=== PATIENT | female | born 1960 | race Caucasian/White ===

== ENCOUNTER → 2017-07-17 | Outpatient (CLI) | payer MEDICARE, OTHER ==
--- NOTE | 2017-07-17 21:24 | MR ---
EXAMINATION TYPE: MR lumbar spine wo con DATE OF EXAM: 07/17/2017 COMPARISON: Prior exam 05/24/2015 HISTORY: Low back pain x10 years, previous MRI on PACS TECHNIQUE: Multiplanar, multisequence images of the lumbar spine were acquired. L1-L2: Posterior broad-based disc bulge causes mild anterior mass effect on the thecal sac. There is facet arthropathy change, no significant foraminal encroachment. L2-L3: Facet arthropathy encroaches on the lateral recesses. There is a right posterior paracentral e xtension of disc bulge causing minimal anterolateral mass effect on the thecal sac. No central canal stenosis or foraminal encroachment. L3-L4: No significant spinal stenosis. There is some hypertrophic change present encroaching on the l ateral recesses. No definite foraminal encroachment. No sizable disc herniation. Minimal anterolisthe sis grade 1 L3-4 L4-L5: Postop changes are noted. There is no significant central stenosis. No evident foraminal encro achment or disc herniation. There is loss of disc height and signal. L5-S1: Laminectomy is noted. The cystic change and T2-weighted sequences at the posterior aspect of t he disc at L5-S1 in the left paracentral location shows a similar configuration, there may be some ma ss effect on the left S1 nerve root, circumferential extension of endplate disc complex encroaches on the neural foramen on the left, there is no central canal stenosis. There is loss of disc height and signal. Posterior fixation hardware is again noted and causes some artifact as on prior exam. Laminectomies a re present. IMPRESSION: Postop changes as described. Some cystic change at L5-S1 left paracentral location may cause some mas s effect on the left S1 nerve root as described.
== END | disposition home or self-care (01) ==
LOC: RADMRIMAIN 20:09
DX: M47.26 Other spondylosis with radiculopathy, lumbar region (principal); Z98.890 Other specified postprocedural states
CPT/HCPCS: 72148

== ENCOUNTER → 2020-01-01 | Outpatient (CLI) | payer MEDICARE ==
[2020-01-01 11:07] LABS: African American GFR (CKD) >90 (>60 ml/min/1.73 sqM); Blood Urea Nitrogen 23 mg/dL (7-17); Non-African American GFR(CKD) >90 (>60 ml/min/1.73 sqM)
--- NOTE | 2020-01-01 12:50 | CT ---
EXAMINATION TYPE: CT soft tissue neck w con DATE OF EXAM: 01/01/2020 COMPARISON: None HISTORY: 59-year-old female throat swelling TECHNIQUE: Contiguous axial scanning of the soft tissues of the neck performed with IV Contrast, azar ent injected with 100 mL of Isovue 300. Coronal/sagittal reconstructions performed. CT DLP: 675 mGycm Automated exposure control for dose reduction was used. FINDINGS: Hypoplastic V4 segment left vertebral artery. Persistent origin left posterior cerebral artery. Visualized intracranial structures, orbits and globes, paranasal sinuses, mastoid air cells appear cl ear. Nasopharynx appears clear. Subtle asymmetric soft tissue thickening along the base of the left tonsillar pillar, axial image 30 may be secondary to soft tissue redundancy. Direct visualization can exclude a mucosal lesion Epiglottis and prevertebral soft tissues are satisfactory. Gliotic and subglottic structures as well as the tracheal column appear clear. Moderate emphysema in the visualized upper lungs. Thyroid gland is heterogeneous. Submandibular and parotid glands are satisfactory. Scattered nonenlarged lymph nodes within both sides of the neck. Status post interbody scoliosis C5-C6 ACDF at C6-C7. There is a intervertebral disc prosthesis at C4- C5 with prominent grade 1 anterolisthesis. IMPRESSION: 1. ASYMMETRIC SOFT TISSUE THICKENING ALONG THE BASE OF THE LEFT TONSILLAR PILLAR, AXIAL IMAGE 30, MAY BE SECONDARY TO SOFT TISSUE REDUNDANCY. DIRECT VISUALIZATION CAN EXCLUDE A MUCOSAL LESION. 2. HETEROGENEOUS THYROID GLAND. CONSIDER GOITER OR DIFFUSE THYROIDITIS. 3. NO CERVICAL LYMPHADENOPATHY IDENTIFIED. 4. SURGICAL CHANGES IN THE CERVICAL SPINE. THERE IS AN INTERVERTEBRAL DISC PROSTHESIS AT C4-C5 WITH A PROMINENT GRADE 1 ANTEROLISTHESIS HERE.
== END | disposition home or self-care (01) ==
LOC: RADCTMAIN 09:57
PROVIDERS: ATTEND Otolaryngology
DX: R93.89 Abnormal findings on diagnostic imaging of other specified body structures (principal); R49.0 Dysphonia
CPT/HCPCS: 82565; 84520; 70491; 36415; Q9967

== ENCOUNTER → 2020-01-02 | Day surgery (SDC) | payer MEDICARE ==
[2020-01-01 13:18] VITALS: BMI 32.8
[~2020-01-02] MED LIST: ACETAMINOPHEN IV (For NPO) 1,000 MG in EMPTY BAG 1 BAG IVPB ONE; DEXAMETHASONE SOD PHOS (MDV) 100 MG/10 ML VIAL ONE; DEXAMETHASONE SOD PHOSPHATE 4 MG/ML 1 ML VIAL IV ONE; GLYCOPYRROLATE 0.2 MG/ML 2 ML VIAL ONE; HYDROmorphone 0.5 MG/0.5 ML SYRINGE IVP PRN; LACTATED RINGERS 1,000 ML IV SCH; LIDOCAINE 1% (10MG/ML) FOR IV START INTRADERMA ONE; LIDOCAINE 1% INJ 10MG/ML (20 ML MDV) ONE; MIDAZOLAM 2 MG/2 ML VIAL ONE; NEOSTIGMINE 1 MG/ML 10 ML VIAL ONE; ONDANSETRON 4 MG/2 ML VIAL IVP ONE; PROPOFOL 10 MG/ML 20 ML VIAL IV ONE; Pre Op ABX Message 1 EACH MISC MISCELLANE ONE; ROCURONIUM 10 MG/ML (10 ML VIAL) IV ONE; SUCCINYLCHOLINE CHLORIDE 100 MG/5 ML SYR IV ONE; fentaNYL (PF) 50 MCG/ML 2 ML AMP ONE
--- NOTE | 2020-01-02 01:58 | HP ---
HISTORY AND PHYSICAL CHIEF COMPLAINT: Chronic laryngitis/hoarseness. HISTORY OF PRESENT ILLNESS: The patient is a pleasant, 59-year-old female who presented to my office complaining of having a one-month history of progressive hoarseness. She denies any pain in her throat, any referred otalgia or any dysphagia. She smokes approximately 1/2 to 1 pack of cigarettes per day and was advised to quit for obvious health reasons. In addition to this, she stated that she also has been diagnosed with COPD/emphysema. At the time that she was seen in my office, clinical examination of oropharynx including an indirect laryngoscopy revealed evidence of a suspicious lesion located at the base of the left tonsillar pillar and on the left true vocal cord. This area was highly suspicious for possible malignancy and because of the patient's history of heavy smoking, it was recommended that she undergo a suspension microlaryngoscopy with biopsy of the left true vocal cord and any other areas that might be deemed necessary under general anesthesia. PAST MEDICAL HISTORY: Past medical history reveals that she has allergies to MORPHINE. Her current medications include metformin, Glucotrol, simvastatin, one baby aspirin daily, Januvia, Neurontin. REVIEW OF SYSTEMS: Cardiovascular is negative. Respiratory is positive for COPD/emphysema. Metabolic endocrine is positive for type 2 diabetes mellitus and hypercholesterolemia. The remainder of review of systems is unremarkable. PAST SURGICAL HISTORY: Previous surgeries include multiple back surgeries and neck surgeries involving disc surgery and cervical fusions. In addition, she has had left hand surgery, right knee surgery involving the cartilage of the knee. She also has history of sleep apnea and uses a BiPAP machine. In addition to this, she is 3 para, 3 C-sections, , 0 miscarriages. PHYSICAL EXAMINATION: HEENT: Patient is normocephalic. Tympanic membranes are normal. Middle ear space is free of any fluid or infection. Pupils are equal, round, and reactive to light and accommodation. Extraocular movements are within normal limits. Intranasal examination reveals moderate to severe septal deviation with compensatory hypertrophy of the inferior turbinates and a moderate amount of mucus on the mucous membranes and draining down the posterior pharynx. Examination of oropharynx is unremarkable. Further findings are described above in the history of present illness and will not be repeated here. Palpation of the neck, cranial nerves 2 through 12 and the remainder of the head and neck exam is unremarkable. CHEST/CARDIOVASCULAR: Both lung kunz are clear to percussion and auscultation. Patient is in regular sinus rhythm. S1 and S2 are present without evidence of any murmurs, S3s or S4s. Peripheral pulses are bilaterally symmetrical and within normal limits. ABDOMEN: There is no evidence any masses, megaly or tenderness. The abdomen is soft. Skin is unremarkable. Musculoskeletal neurological is unremarkable. PELVIC RECTAL EXAM: The pelvic rectal exam is deferred at this time because the patient has this done on a regular basis at her family physician's office. The remainder of physical exam is essentially unremarkable. IMPRESSION: Chronic laryngitis with lesion of the left true vocal cord, base of the left tonsillar fossa. PLAN: The patient is scheduled to undergo a suspension microlaryngoscopy, biopsy of the left true vocal cord under general anesthesia in a.m. ATTENTION RNS IN THE PRE-SURGICAL AREA: I have not ordered any pre-surgical prophylactic antibiotics for this patient. If the pharmacy department sends any pre- surgical prophylactic antibiotics to the pre-surgical area for this patient, please cancel that order and return the medication to the pharmacy department. Please make sure that the patient's account is credited appropriately. I have ordered for this patient to receive 1000 mg of Ofirmev intravenously, to be given once an intravenous line has been established. I have discussed the risks, benefits and alternative therapies for the above-mentioned procedure and for both sedation/analgesia as well as necessary blood product administration, if indicated, as they pertain to this patient. The patient has indicated his or her understanding and acceptance of the risks and procedures discussed. MMODL / IJN: [id number] /
[2020-01-02 12:51] LABS: Glucose,Whole Blood 123 mg/dL (75-99)
[2020-01-02 14:11] LABS: Glucose,Whole Blood 141 mg/dL (75-99)
[2020-01-02 14:18] VITALS: TEMP 97.1
[2020-01-02 15:08] VITALS: RESP 17
[2020-01-02 15:22] VITALS: BP 130/65; PULSE 45
--- NOTE | 2020-01-05 17:16 | OP ---
OPERATIVE REPORT DATE OF SURGERY: 01/02/2020 PREOPERATIVE DIAGNOSIS: Chronic laryngitis, possible laryngeal malignancy. POSTOPERATIVE DIAGNOSIS: Bilateral laryngeal masses, final pathology pending. ANESTHESIA: General. OPERATIVE PROCEDURE: Suspension microlaryngoscopy with biopsy of right and left true vocal cord masses/lesions. OPERATING SURGEON: Dr. Patterson. COMPLICATIONS: None. ESTIMATED BLOOD LOSS: Less than 1 mL. OPERATIVE PROCEDURE: The patient is placed on the operating table in supine position and after uneventful induction and endotracheal intubation, satisfactory general anesthesia was obtained. Next, the patient was draped in usual and customary fashion following which the direct laryngoscope was introduced in the oropharynx and the entire hypopharynx and oropharynx were inspected for any suspicious lesions. Attention was directed to the left tonsil area and especially the base of the left tonsil/tonsillar pillars and no suspicious lesions were noted, but there was significant amount of redundant folds of tissue. The base of tongue, vallecula, right and left piriform sinuses were inspected and found to be free of any suspicious lesions. Next, the tip of the laryngoscope was presented to the laryngeal introitus and advanced thus exposing both true vocal cords. Next the Lewy apparatus was attached to the handle of the laryngoscope and the laryngoscope was suspended on the patient's chest. Following this, using the Zeiss operating microscope and under magnified visualization once seated both true vocal cords were involved with lesions/masses. The mass on the right side was greater in volume than the mass involving the left true vocal cord. Multiple biopsies were taken of the left true vocal cord and of the right true vocal cord. These specimens were kept separate and placed in formalin for permanent sectioning and sent to Pathology. The patient was given 10 mg of Decadron intraoperatively to reduce any postoperative edema. At this point, the procedure was terminated. There were no intraoperative complications. The patient tolerated the procedure well. Final pathology is pending. MMODL / IJN: [id number] /
== END | disposition home or self-care (01) ==
LOC: OR 11:49
PROVIDERS: ATTEND Otolaryngology
DX: J38.3 Other diseases of vocal cords (principal); J37.0 Chronic laryngitis; E11.9 Type 2 diabetes mellitus without complications; F17.210 Nicotine dependence, cigarettes, uncomplicated; J43.9 Emphysema, unspecified; E78.00 Pure hypercholesterolemia, unspecified; G47.30 Sleep apnea, unspecified; E78.5 Hyperlipidemia, unspecified; Z79.84 Long term (current) use of oral hypoglycemic drugs; Z79.899 Other long term (current) drug therapy; Z79.82 Long term (current) use of aspirin; Z98.890 Other specified postprocedural states; Z98.1 Arthrodesis status; Z99.89 Dependence on other enabling machines and devices; Z97.2 Presence of dental prosthetic device (complete) (partial); Z88.5 Allergy status to narcotic agent; Z88.8 Allergy status to other drugs, medicaments and biological substances; Z91.09 Other allergy status, other than to drugs and biological substances
CPT/HCPCS: 31536; 88305; J2250; J1100 ×2; J2710; J2405; J2001; J3010; J0131; J0330; J2704

== ENCOUNTER 2020-01-19 08:35 | Day surgery (SDC) | payer MEDICARE ==
[2020-01-16 10:08] VITALS: BMI 32.5
--- NOTE | 2020-01-18 17:07 | HP ---
HISTORY AND PHYSICAL CHIEF COMPLAINT: Chronic laryngitis with laryngeal polyps. HISTORY OF PRESENT ILLNESS: The patient is a 59-year-old female who was recently taken to surgery at [facility] where she underwent a suspension microlaryngoscopy with biopsy of the right and left true vocal cords. The biopsy came back as benign bilateral polypoid tissue with chronic inflammation, but no malignancy. It was therefore recommend the patient undergo laser removal of the polyps from both true vocal cords to restore her voice. It was explained to the patient that only 1 vocal cord could be done at the time, so as to prevent the formation of a web between the 2 cords. Therefore, the larger lesion which is on the right true vocal cord will be lasered and removed and possibly rebiopsy and the lesion on the left true vocal cord will simply be biopsied. This will be done under general anesthesia in the a.m. PAST MEDICAL HISTORY: ALLERGIES: TO MORPHINE, CODEINE, AND PREFERS TO AVOID ALL NARCOTICS BECAUSE OF REACTIONS. MEDICATIONS: Include metformin, Glucotrol, simvastatin, 1 baby aspirin p.o. daily, Januvia and Neurontin. PREVIOUS SURGERIES: Previous surgeries include suspension microlaryngoscopy with biopsy of the right and left true vocal cords. Multiple lower back surgeries and cervical neck disk surgery/cervical fusions, left hand surgery, right knee surgery, right knee arthroscopic surgery involving the cartilage of the knee, but not total knee replacement. She has history of sleep apnea and uses a BiPAP machine. She is 3 para, 3 C sections, 0 , 0 miscarriages. REVIEW OF SYSTEMS: Cardiovascular is negative. RESPIRATORY: Positive for COPD/emphysema, the patient has history of smoking, which she is trying to quit at the present time. The metabolic/ endocrine system is positive for type 2 diabetes mellitus and hypercholesterolemia. The remainder of the review of systems is essentially unremarkable. PHYSICAL EXAMINATION: This patient is a 59-year-old female who was alert, cooperative and well-oriented to time and place. HEENT examination: Patient is normocephalic. Tympanic membranes are normal. Middle ear spaces are free of any fluid or infection. Pupils equal, round, react to light and accommodation. Extraocular movements within normal limits. Intranasal examination reveals moderate septal deviation with bilateral compensatory hypertrophy of inferior turbinates. A moderate amount of mucus on the mucous membranes and draining down the posterior pharynx. Examination of oropharynx including indirect laryngoscopy reveals bilateral true vocal cord polyps. Palpation of the neck, cranial nerves 2 through 12 and remainder of the head and neck exam are within normal limits. Chest/cardiovascular: Both lung kunz are clear to percussion and auscultation. The patient is in regular sinus rhythm. S1 and S2 are present without evidence of any murmurs, S3s or S4s. Peripheral pulses are bilaterally symmetrical. Abdomen: There is no evidence any masses, megaly or tenderness. The abdomen is soft. Skin is unremarkable. Musculoskeletal, neurological within normal limits. Pelvic/rectal exam: The pelvic rectal exam is deferred at this time because the patient has this done on a regular basis at her family physician's office. The remainder of physical exam is essentially unremarkable. IMPRESSION: Bilateral true vocal cord lesions/polyps. PLAN: Patient's chest is scheduled undergo a CO2 laser of a right true vocal cord polyp and possible biopsy of left true vocal cord lesion/polyp under general anesthesia in a.m. Attention nurses in the preop pre-surgical area: I have not ordered any pre-surgical prophylactic antibiotics for this patient. If the pharmacy department sends any pre- surgical prophylactic antibiotics to the pre-surgical area for this patient, that order should be cancelled, the medication should be returned to the pharmacy department and make sure that the patient's account is credited appropriately. I have ordered for this patient to receive 1000 mg of Ofirmev IV to be given once an intravenous line has been established. I have discussed the risks, benefits and alternative therapies for the above-mentioned procedure and for both sedation/analgesia as well as necessary blood product administration, if indicated, as they pertain to this patient. The patient has indicated his or her understanding and acceptance of the risks and procedures discussed. MMODL / IJN: [id number] /
[~2020-01-19 08:35] MED LIST changes: -ACETAMINOPHEN IV (For NPO) 1,000 MG in EMPTY BAG 1 BAG IVPB ONE; -DEXAMETHASONE SOD PHOS (MDV) 100 MG/10 ML VIAL ONE; -GLYCOPYRROLATE 0.2 MG/ML 2 ML VIAL ONE; -LIDOCAINE 1% (10MG/ML) FOR IV START INTRADERMA ONE; -LIDOCAINE 1% INJ 10MG/ML (20 ML MDV) ONE; -MIDAZOLAM 2 MG/2 ML VIAL ONE; -NEOSTIGMINE 1 MG/ML 10 ML VIAL ONE; -PROPOFOL 10 MG/ML 20 ML VIAL IV ONE; -ROCURONIUM 10 MG/ML (10 ML VIAL) IV ONE; -SUCCINYLCHOLINE CHLORIDE 100 MG/5 ML SYR IV ONE; -fentaNYL (PF) 50 MCG/ML 2 ML AMP ONE
[2020-01-19 08:55] VITALS: TEMP 97.8
[2020-01-19] MEDS ORDERED: LACTATED RINGERS 1,000 ML IV ONE (08:56)
[2020-01-19 09:10] LABS: Glucose,Whole Blood 120 mg/dL (75-99)
[2020-01-19] MEDS: ACETAMINOPHEN IV (For NPO) 1,000 MG in EMPTY BAG 1 BAG IVPB ONE ×2 (09:15→09:52)
[2020-01-19] MEDS ORDERED: SUCCINYLCHOLINE CHLORIDE 100 MG/5 ML SYR IV ONE (09:51)
[2020-01-19] MEDS ORDERED: MIDAZOLAM 2 MG/2 ML VIAL ONE (09:51)
[2020-01-19] MEDS ORDERED: LIDOCAINE 1% INJ 10MG/ML (20 ML MDV) ONE (09:51)
[2020-01-19] MEDS ORDERED: fentaNYL (PF) 50 MCG/ML 2 ML AMP ONE (09:51)
[2020-01-19] MEDS ORDERED: PROPOFOL 10 MG/ML 20 ML VIAL IV ONE (09:51)
[2020-01-19] MEDS ORDERED: DEXAMETHASONE SOD PHOSPHATE 10 MG/ML 1 ML VIAL ONE (09:51)
[2020-01-19 11:13] VITALS: RESP 16
[2020-01-19 11:17] LABS: Glucose,Whole Blood 169 mg/dL (75-99)
[2020-01-19 12:33] VITALS: BP 129/69; PULSE 65
--- NOTE | 2020-01-19 17:13 | OP ---
OPERATIVE REPORT DATE OF SURGERY: 01/18/2023 PREOPERATIVE DIAGNOSIS: Bilateral true vocal cord polypoid lesions. POSTOPERATIVE DIAGNOSIS: Bilateral true vocal cord polypoid lesions. ANESTHESIA: General. PROCEDURE: Was a suspension microlaryngoscopy with CO2 laser and biopsy of the left true vocal cord. OPERATING SURGEON: Dr. Chava Patterson. COMPLICATIONS: None. ESTIMATED BLOOD LOSS: Less than 0.5 mL. OPERATIVE PROCEDURE: The patient is placed operating table in supine position. After uneventful induction of endotracheal intubation, satisfactory general anesthesia was obtained. The patient was draped in usual customary fashion. The direct laryngoscope was introduced into the patient's oropharynx and the entire hypopharynx including the right and left piriform sinuses, base of tongue, valleculae and epiglottis were inspected and found to be free of any suspicious lesions. Next, the tip of the laryngoscope was placed into the laryngeal introitus. Subsequently, the Lewy apparatus was attached to the handle of the laryngoscope and the laryngoscope was suspended on the patient's chest. Using the Zeiss operating microscope under direct magnified visualization. One could see that there was bilateral polypoid-like lesions on the true vocal cords and also including the laryngeal ventricles. Initially, a biopsy was taken of the left polypoid lesion and this was sent to Pathology for permanent sectioning. . Using the CO2 laser set on a 10 watt intermittent setting, the polypoid lesion on the left true vocal cord/left ventricle was completely vaporized in the usual fashion. Care was taken not to injure any of the vocalis muscle of the vocal cord. The patient was given 10 mg of Decadron intraoperatively to reduce any postoperative laryngeal edema. At this point, the procedure was terminated. There was no intraoperative complications. The patient tolerated the procedure well and was returned to recovery room in satisfactory condition. Final pathology of the left true vocal cord biopsy is pending. MMODL / IJN: [id number] /
== END 2020-01-19 12:40 | disposition home or self-care (01) ==
LOC: OR 08:35
PROVIDERS: ATTEND Otolaryngology
DX: J38.3 Other diseases of vocal cords (principal); J37.0 Chronic laryngitis; E78.5 Hyperlipidemia, unspecified; G47.33 Obstructive sleep apnea (adult) (pediatric); J44.9 Chronic obstructive pulmonary disease, unspecified; E11.9 Type 2 diabetes mellitus without complications; Z88.5 Allergy status to narcotic agent; Z91.048 Other nonmedicinal substance allergy status; Z79.84 Long term (current) use of oral hypoglycemic drugs; Z79.82 Long term (current) use of aspirin; Z79.899 Other long term (current) drug therapy; Z98.890 Other specified postprocedural states
CPT/HCPCS: 88305; 31536; J2250; J1100 ×2; J2405; J2001; J3010; J0131; J0330; J2704

== ENCOUNTER 2020-05-10 11:26 | Day surgery (SDC) | payer MEDICARE, OTHER ==
[2020-05-06 14:35] VITALS: BMI 34.3
--- NOTE | 2020-05-09 18:15 | HP ---
HISTORY AND PHYSICAL CHIEF COMPLAINT: Chronic laryngitis with right true vocal cord lesion/polyp. HISTORY OF PRESENT ILLNESS: This patient is a 59-year-old female who has previously undergone a suspension microlaryngoscopy with biopsy of the right and left true vocal cords showed right and right and left true vocal cord lesions. Both biopsies were negative. The patient was subsequently taken back to surgery and the lesion on the left true vocal cord was subsequently lasered using the CO2 laser. The patient's voice improved but she still has some residual laryngitis secondary to the remaining polypoid lesion on the right true vocal cord. It was therefore recommended that she undergo a suspension microlaryngoscopy with CO2 laser of a polypoid lesion on the right true vocal cord under general anesthesia. PAST MEDICAL HISTORY: Past medical history reveals patient has: ALLERGIES: TO MORPHINE, CODEINE, AND MOST NARCOTICS. Her allergy is mainly a combination of rashes and excessive sedation. CURRENT MEDICATIONS: Include metformin Glucotrol, simvastatin, Januvia, 1 baby aspirin daily, and Neurontin. PREVIOUS SURGERIES: Previous surgeries include suspension microlaryngoscopy x2, multiple (at least 10) lower back surgeries, cervical neck fusion, 2 knee replacement surgeries, left hand surgery, right knee arthroscopic surgery involving removal of excessive cartilage from the right knee, but not a total right knee replacement. She has history of sleep apnea and uses a BiPAP machine. She has 3 para 3 C-sections, 0 , 0 miscarriage. REVIEW OF SYSTEMS: Cardiovascular is negative. RESPIRATORY: Positive for COPD/emphysema. The patient has history of smoking and states that she is trying to quit. Metabolic/endocrine system is positive for type 2 diabetes mellitus and hypercholesterolemia. The remainder review of systems is essentially unremarkable. PHYSICAL EXAMINATION: This patient is a pleasant 59-year-old female who was alert, cooperative and well- oriented to time and place. HEENT examination: Patient is normocephalic. Tympanic membranes are normal. Middle ear spaces are free of any fluid or infection. Pupils equal, round, react to light and accommodation. Extraocular movements within normal limits. Intranasal examination reveals moderate septal deviation with compensatory hypertrophy of the inferior turbinates and a moderate amount of mucus on the mucous membrane draining down the posterior pharynx. Examination of the oropharynx including indirect laryngoscopy using a headlight mirror revealed evidence of a polypoid lesion on the right true vocal cord, otherwise the examination of the hypopharynx is unremarkable. Palpation of the neck, cranial nerves 2 through 12 and examination of the oropharynx all within normal limits. CHEST/CARDIOVASCULAR: Both lung kunz are clear to percussion and auscultation. The patient is in regular sinus rhythm. S1, S2 are present without evidence of any murmurs, S3s or S4s. Peripheral pulses are bilaterally symmetrical and within normal limits. ABDOMEN: There is no evidence any masses, megaly or tenderness. Abdomen is soft. SKIN is unremarkable. MUSCULOSKELETAL within normal limits. NEUROLOGICAL within normal limits. SKIN within normal limits. PELVIC/RECTAL exam is deferred at this time because the patient has this done on a regular basis at her family physician's office. The remainder of the physical exam is unremarkable. IMPRESSION: Chronic laryngitis with right true vocal cord lesion/polyp. PLAN: The patient is scheduled undergo a suspension microlaryngoscopy with CO2 laser vaporization of right true vocal cord lesion/polyp under general anesthesia in a.m. Attention RNs in the pre-surgical area: The only pre-surgical prophylactic antibiotic I have ordered for this patient to receive it is Ancef 3 g IV piggyback to be given once an intravenous line has been established. I have also ordered for her to receive Ofirmev 1000 mg IV once an intravenous line has been established. If the pharmacy department sends a different pre-surgical prophylactic antibiotic other than the 1 that I have ordered, please cancel that order from the pharmacy department and return the medication to the pharmacy department. Please make sure that the patient's account is credited appropriately. I have discussed the risks, benefits and alternative therapies for the above-mentioned procedure and for both sedation/analgesia as well as necessary blood product administration, if indicated, as they pertain to this patient. The patient has indicated his or her understanding and acceptance of the risks and procedures discussed. MMODL / IJN: [id number] /
[~2020-05-10 11:26] MED LIST changes: -HYDROmorphone 0.5 MG/0.5 ML SYRINGE IVP PRN; +MIDAZOLAM 2 MG/2 ML VIAL IV PRN; +SCOPOLAMINE 1.5MG/72HR PATCH TRANSDERM ONE; +fentaNYL (PF) 50 MCG/ML 2 ML AMP IV PRN
[2020-05-10 11:55] VITALS: RESP 16
[2020-05-10] MEDS ORDERED: LIDOCAINE 1% (10MG/ML) FOR IV START INTRADERMA ONE (11:55)
[2020-05-10 12:02] LABS: Glucose,Whole Blood 171 mg/dL (75-99)
[2020-05-10] MEDS ORDERED: ACETAMINOPHEN IV (For NPO) 1,000 MG in EMPTY BAG 1 BAG IVPB ONE (12:30)
[2020-05-10] MEDS ORDERED: ceFAZolin 3 GM in SODIUM CHLORIDE 0.9% 100 ML IVPB ONE (12:30)
[2020-05-10] MEDS ORDERED: SUCCINYLCHOLINE CHLORIDE 100 MG/5 ML SYR IV ONE (12:40)
[2020-05-10] MEDS ORDERED: LIDOCAINE 1% INJ 10MG/ML (20 ML MDV) ONE (12:40)
[2020-05-10] MEDS ORDERED: fentaNYL (PF) 50 MCG/ML 2 ML AMP ONE (12:40)
[2020-05-10] MEDS ORDERED: NEOSTIGMINE 1 MG/ML 10 ML VIAL ONE (12:40)
[2020-05-10] MEDS ORDERED: ROCURONIUM 10 MG/ML (5 ML VIAL) IV ONE (12:40)
[2020-05-10] MEDS ORDERED: MIDAZOLAM 2 MG/2 ML VIAL ONE (12:40)
[2020-05-10] MEDS ORDERED: PROPOFOL 10 MG/ML 20 ML VIAL IV ONE (12:40)
[2020-05-10] MEDS ORDERED: DEXAMETHASONE SOD PHOSPHATE 10 MG/ML 1 ML VIAL ONE (12:40)
[2020-05-10] MEDS ORDERED: GLYCOPYRROLATE 0.2 MG/ML 2 ML VIAL ONE (12:40)
[2020-05-10 13:43] VITALS: TEMP 97
[2020-05-10 14:03] LABS: Glucose,Whole Blood 164 mg/dL (75-99)
[2020-05-10 14:53] VITALS: BP 149/74; PULSE 79
--- NOTE | 2020-05-10 18:26 | OP ---
OPERATIVE REPORT DATE OF SURGERY: 05/10/2020 PREOPERATIVE DIAGNOSIS: Polypoid lesion of the right true vocal cord. POSTOPERATIVE DIAGNOSIS: Polypoid lesion of the right true vocal cord. ANESTHESIA: General. OPERATIVE PROCEDURE: Suspension microlaryngoscopy with CO2 laser of polypoid lesion of the right true vocal cord. OPERATING SURGEON: Dr. Chava Patterson COMPLICATIONS: None. ESTIMATED BLOOD LOSS: Zero. PROCEDURE DESCRIPTION: The patient was placed on the operating table in supine position. After uneventful induction and endotracheal intubation, satisfactory general anesthesia was obtained. Next the patient was draped in usual and customary fashion, following which the laryngoscope was introduced into the anterior commissure. Laryngoscope was introduced into the oropharynx in the usual fashion and subsequently the entire hypopharynx, including the right and left piriform sinuses, base of tongue, valleculae and epiglottis, was inspected and found to be free of any suspicious lesions. Next the tip of the laryngoscope was placed at the laryngeal introitus. It is to be noted that in the preoperative area of the hospital the patient had stated that she had had several episodes of coughing up small amounts of blood. At the time that the laryngoscope was placed into the laryngeal introitus, it was noted that there was a small amount of blood in the subglottic area, but no active bleeding was noted. Next the Lewy apparatus was attached to the handle of the laryngoscope and the laryngoscope was suspended on the patient's chest. Following this, using the Zeiss operating microscope and under direct magnification, one could see that there was a polypoid lesion located on the anterior third of the right true vocal cord. Therefore, using the CO2 laser set on 5 milliwatts, the lesion was grasped with a pair of up-biting forceps and pulled medially and subsequently was completely vaporized using the CO2 laser. No specimen or biopsy was taken at this time because on two previous surgeries a biopsy had been taken of this lesion. It was found to be benign. The patient was given 10 mg of Decadron intraoperatively to reduce any postoperative edema. No other suspicious lesions were noted on either true vocal cord, and at this point the procedure was terminated. There were no intraoperative complications. The patient tolerated the procedure well and was returned to the recovery room in satisfactory condition. MMODL / IJN: [id number] /
== END 2020-05-10 14:58 | disposition home or self-care (01) ==
LOC: OR 11:26
PROVIDERS: ATTEND Otolaryngology
DX: J38.1 Polyp of vocal cord and larynx (principal); E11.9 Type 2 diabetes mellitus without complications; E78.00 Pure hypercholesterolemia, unspecified; J44.9 Chronic obstructive pulmonary disease, unspecified; G47.30 Sleep apnea, unspecified; Z87.891 Personal history of nicotine dependence; Z79.84 Long term (current) use of oral hypoglycemic drugs; Z79.899 Other long term (current) drug therapy; Z79.82 Long term (current) use of aspirin; Z88.5 Allergy status to narcotic agent
CPT/HCPCS: 31572; J1100; J2405; J0131

== ENCOUNTER 2020-05-19 08:53 | Emergency (ER) | payer MEDICARE, OTHER ==
[2020-05-19 09:19] VITALS: RESP 18
[2020-05-19] MEDS ORDERED: HYDROmorphone 0.5 MG/0.5 ML SYRINGE IVP STA (09:38)
[2020-05-19] MEDS ORDERED: SODIUM CHLORIDE 0.9% 500 ML 500 ML IV STA (09:38)
[2020-05-19] MEDS ORDERED: ONDANSETRON 4 MG/2 ML VIAL IVP STA (09:38)
[2020-05-19] MEDS ORDERED: SODIUM CHLORIDE 0.9% 1,000 ML IV STA (09:38)
--- NOTE | 2020-05-19 09:39 | ED ---
Abdominal Pain HPI - General Chief Complaint: Abdominal Pain Stated Complaint: kidney/abd pain Time Seen by Provider: 05/19/20 09:30 Source: patient, RN notes reviewed Mode of arrival: wheelchair Limitations: no limitations - History of Present Illness Initial Comments: This a 59-year-old female presents emergency Department chief complaint of left flank pain. Patient states started yesterday sudden onset of pain. Patient had kidney stones in the past in which she had to have her son's removed. Patient admits to nausea vomiting. Patient states the pain is very severe. No diarrhea no constipation she has mild urinary frequency and hematuria noted. Patient denies any other complaints. No fevers or chills. - Related Data Home Medications Medication Instructions Recorded Confirmed Aspirin [Adult Low Dose Aspirin EC] 81 mg PO DAILY 01/08/15 05/06/20 metFORMIN HCL 1,000 mg PO BID-W/MEALS 01/08/15 05/06/20 Simvastatin [Zocor] 20 mg PO HS 11/19/15 05/06/20 Gabapentin 600 mg PO DAILY PRN 01/01/20 05/06/20 sitaGLIPtin [Januvia] 100 mg PO DAILY 01/01/20 05/06/20 Previous Rx's Medication Instructions Recorded Cefdinir [Omnicef] 300 mg PO Q12HR #20 capsule 05/09/20 Ketorolac [Toradol] 10 mg PO Q8HR #15 tab 05/19/20 Ondansetron Odt [Zofran Odt] 4 mg PO Q8HR PRN #10 tab 05/19/20 Tamsulosin [Flomax] 0.4 mg PO DAILY #7 cap 05/19/20 Allergies Allergy/AdvReac Type Severity Reaction Status Date / Time morphine AdvReac Unknown Nausea & Verified 05/19/20 09:19 Vomiting, Constipation povidone-iodine AdvReac Rash/Hives Verified 05/19/20 09:19 [From Betadine] soap [From Betadine] AdvReac Rash/Hives Verified 05/19/20 09:19 Review of Systems ROS Statement: Those systems with pertinent positive or pertinent negative responses have been documented in the HPI. ROS Other: All systems not noted in ROS Statement are negative. Past Medical History Past Medical History: COPD, Diabetes Mellitus, Hyperlipidemia, Osteoarthritis (OA), Sleep Apnea/CPAP/BIPAP Additional Past Medical History / Comment(s): BI-PAP MACHINE, CHRONIC BACK PAIN. 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 History of Any Multi-Drug Resistant Organisms: None Reported Past Surgical History: Back Surgery, Orthopedic Surgery Additional Past Surgical History / Comment(s): 6 BACK SURGERIES. ORIF LEFT HIP & RIGHT INDEX FINGER , LEFT NEPHROLITHOTOMY. CERVICAL SURGERY X3-HAS PLATE , VOCAL CORD BIOPSY , VOCAL CORD LESIONS (01/19/20), laser vocal cord surgery - lesion removal Past Anesthesia/Blood Transfusion Reactions: Previous Problems w/ Anesthesia Additional Past Anesthesia/Blood Transfusion Reaction / Comment(s): DURING ONE OF HER BACK SURGERIES, SHE WAS EXTUBATED TOO EARLY AND A VOCAL CORD WAS DAMAGED. Past Psychological History: No Psychological Hx Reported Smoking Status: Current every day smoker Past Alcohol Use History: None Reported Past Drug Use History: Marijuana - Past Family History Father Family Medical History: Cancer Additional Family Medical History / Comment(s): lung cancer Mother Family Medical History: Cancer, CVA/TIA, Diabetes Mellitus, Deep Vein Thrombosis (DVT) Additional Family Medical History / Comment(s): CANCER IN LYMPH NODES General Exam Limitations: no limitations General appearance: alert, in no apparent distress Head exam: Present: atraumatic, normocephalic, normal inspection Eye exam: Present: normal appearance, PERRL, EOMI. Absent: scleral icterus, conjunctival injection, periorbital swelling Neck exam: Present: normal inspection. Absent: tenderness, meningismus, lymphadenopathy Respiratory exam: Present: normal lung sounds bilaterally. Absent: respiratory distress, wheezes, rales, rhonchi, stridor Cardiovascular Exam: Present: regular rate, normal rhythm, normal heart sounds. Absent: systolic murmur, diastolic murmur, rubs, gallop, clicks GI/Abdominal exam: Present: soft, tenderness (mild left-sided), normal bowel sounds. Absent: distended, guarding, rebound, rigid Back exam: Present: CVA tenderness (L). Absent: CVA tenderness (R) Neurological exam: Present: alert, oriented X3, CN II-XII intact Course Vital Signs 05/19/20 09:17 Temperature 98.2 F Pulse Rate 68 Respiratory 18 Rate Blood Pressure 186/93 O2 Sat by Pulse 94 L Oximetry Medical Decision Making - Medical Decision Making Patient urinalysis reveals hematuria pain consistent with kidney stone and a history kidney stones. Patient will be discharged in stable condition with was follow-up return parameters were discussed. - Lab Data Result diagrams: 05/19/20 09:51 05/19/20 09:51 Lab Results 05/19/20 05/19/20 05/19/20 Range/Units 09:51 09:51 09:51 WBC 10.0 (3.8-10.6) k/uL RBC 4.48 (3.80-5.40) m/uL Hgb 12.5 (11.4-16.0) gm/dL Hct 37.5 (34.0-46.0) % MCV 83.7 (80.0-100.0) fL MCH 28.0 (25.0-35.0) pg MCHC 33.4 (31.0-37.0) g/dL RDW 14.5 (11.5-15.5) % Plt Count 217 (150-450) k/uL MPV 7.7 Neutrophils % 84 % Lymphocytes % 11 % Monocytes % 4 % Eosinophils % 1 % Basophils % 0 % Neutrophils # 8.3 H (1.3-7.7) k/uL Lymphocytes # 1.1 (1.0-4.8) k/uL Monocytes # 0.4 (0-1.0) k/uL Eosinophils # 0.1 (0-0.7) k/uL Basophils # 0.0 (0-0.2) k/uL Sodium 137 (137-145) mmol/L Potassium 4.2 (3.5-5.1) mmol/L Chloride 104 (98-107) mmol/L Carbon Dioxide 20 L (22-30) mmol/L Anion Gap 13 mmol/L BUN 13 (7-17) mg/dL Creatinine 0.55 (0.52-1.04) mg/dL Est GFR (CKD-EPI)AfAm >90 (>60 ml/min/1.73 sqM) Est GFR (CKD-EPI)NonAf >90 (>60 ml/min/1.73 sqM) Glucose 295 H (74-99) mg/dL Calcium 9.2 (8.4-10.2) mg/dL Total Bilirubin 0.5 (0.2-1.3) mg/dL AST 23 (14-36) U/L ALT 19 (4-34) U/L Alkaline Phosphatase 98 (38-126) U/L Total Protein 7.4 (6.3-8.2) g/dL Albumin 4.3 (3.5-5.0) g/dL Amylase 43 (30-110) U/L Lipase 60 (23-300) U/L Urine Color Light Red Urine Appearance Clear (Clear) Urine pH 6.5 (5.0-8.0) Ur Specific [place] 1.015 (1.001-1.035) Urine Protein Trace H (Negative) Urine Glucose (UA) 4+ H (Negative) Urine Ketones Negative (Negative) Urine Blood Large H (Negative) Urine Nitrite Negative (Negative) Urine Bilirubin Negative (Negative) Urine Urobilinogen <2.0 (<2.0) mg/dL Ur Leukocyte Esterase Trace H (Negative) Urine RBC >182 H (0-5) /hpf Urine WBC 6 H (0-5) /hpf Urine Mucus Rare H (None) /hpf Disposition Clinical Impression: Kidney stone Disposition: HOME SELF-CARE Condition: Stable Instructions (If sedation given, give patient instructions): Kidney Stones (ED) Additional Instructions: Please return to the Emergency Department if symptoms worsen or any other concerns. Prescriptions: Tamsulosin [Flomax] 0.4 mg PO DAILY #7 cap Ketorolac [Toradol] 10 mg PO Q8HR #15 tab Ondansetron Odt [Zofran Odt] 4 mg PO Q8HR PRN #10 tab PRN Reason: Nausea Is patient prescribed a controlled substance at d/c from ED?: No Referrals: Alejandro Aguilar MD [Primary Care Provider] - 1-2 days Last Rosen MD [STAFF PHYSICIAN] - 1-2 days Time of Disposition: 10:53
[2020-05-19 10:02] LABS: Basophils % (A) 0 %; Eosinophils # (A) 0.1 k/uL (0-0.7); Eosinophils % (A) 1 %; HCT 37.5 % (34.0-46.0); HGB 12.5 gm/dL (11.4-16.0); Lymphocytes # (A) 1.1 k/uL (1.0-4.8); Lymphocytes % (A) 11 %; MCHC 33.4 g/dL (31.0-37.0); MCV 83.7 fL (80.0-100.0); Mean Platelet Volume 7.7; Monocytes # (A) 0.4 k/uL (0-1.0); Monocytes % (A) 4 %; Neutrophils # (A) 8.3 k/uL (1.3-7.7); Neutrophils % (A) 84 %; Platelet Count 217 k/uL (150-450); RBC 4.48 m/uL (3.80-5.40); RDW 14.5 % (11.5-15.5)
[2020-05-19 10:19] LABS: Appearance,Urine Clear (Clear); Bilirubin,Urine Negative (Negative); Blood,Urine Large (Negative); Color,Urine Light Red; Glucose,Urine (UA) 4+ (Negative); Ketones,Urine Negative (Negative); Leukocyte Esterase,Urine Trace (Negative); Mucus,Urine Rare /hpf; Nitrite,Urine Negative (Negative); PH, Urine 6.5 (5.0-8.0); Protein,Urine Trace (Negative); RBC,Urine >182 /hpf (0-5); Specific Gravity,Urine 1.015 (1.001-1.035); Urobilinogen,Urine <2.0 mg/dL (<2.0); WBC,Urine 6 /hpf (0-5)
[2020-05-19 10:20] LABS: ALT 19 U/L (4-34); AST 23 U/L (14-36); African American GFR (CKD) >90 (>60 ml/min/1.73 sqM); Albumin 4.3 g/dL (3.5-5.0); Alkaline Phosphatase 98 U/L (38-126); Amylase 43 U/L (30-110); Anion Gap 13 mmol/L; Blood Urea Nitrogen 13 mg/dL (7-17); Calcium 9.2 mg/dL (8.4-10.2); Carbon Dioxide 20 mmol/L (22-30); Chloride 104 mmol/L (98-107); Glucose 295 mg/dL (74-99); Lipase 60 U/L (23-300); Non-African American GFR(CKD) >90 (>60 ml/min/1.73 sqM); Potassium 4.2 mmol/L (3.5-5.1); Sodium 137 mmol/L (137-145); Total Bilirubin 0.5 mg/dL (0.2-1.3); Total Protein 7.4 g/dL (6.3-8.2)
--- NOTE | 2020-05-19 10:31 | XR ---
EXAMINATION TYPE: XR KUB DATE OF EXAM: 05/19/2020 COMPARISON: 11/24/2015 HISTORY: Abdomen pain left lower quadrant TECHNIQUE: Abdomen is examined in upright view FINDINGS: Left hip pins are present. Postsurgical changes are within the lumbar spine. Sacroiliac kristen nts appear normal. Symphysis pubis appears normal. No free air is under the diaphragm. No suspicious air-fluid levels or differential air-fluid levels present. Previous renal calcifications are not evid ent. IMPRESSION: 1. Nonspecific abdomen. 2. No suspicious acute changes.
[2020-05-19] MEDS ORDERED: ACET/COD 300 MG/30 MG STARTER PACK 6 TAB BTL PO STA (10:53)
[2020-05-19 11:20] VITALS: BP 171/80; PULSE 60; TEMP 98.9
== END 2020-05-19 11:19 | disposition home or self-care (01) ==
LOC: EC 08:53
DX: N20.0 Calculus of kidney (principal); E11.9 Type 2 diabetes mellitus without complications; E78.5 Hyperlipidemia, unspecified; M19.90 Unspecified osteoarthritis, unspecified site; G47.33 Obstructive sleep apnea (adult) (pediatric); F17.200 Nicotine dependence, unspecified, uncomplicated; Z79.82 Long term (current) use of aspirin; Z79.84 Long term (current) use of oral hypoglycemic drugs; Z99.89 Dependence on other enabling machines and devices; Z79.899 Other long term (current) drug therapy; Z88.5 Allergy status to narcotic agent; Z91.041 Radiographic dye allergy status; Z91.048 Other nonmedicinal substance allergy status
CPT/HCPCS: 36415; 80053; 82150; 83690; 85025; 81001; 74018; 99284; 96374; 96375; 96361; J2405; J1170